=== PATIENT | female | born 1970 | race Two or more races ===

== ENCOUNTER 2018-10-06 17:19 | Emergency (ER) | payer SELFPAY ==
[2018-10-06 17:34] VITALS: BP 166/88; PULSE 101; TEMP 99.5; BMI 30.2
[2018-10-06] MEDS ORDERED: METOCLOPRAMIDE HCL INJECTION 10 MG/2 ML VIAL IM ONE (18:57)
[2018-10-06] MEDS ORDERED: METOCLOPRAMIDE HCL INJECTION 10 MG/2 ML VIAL ONE (19:01)
[2018-10-06] MEDS ORDERED: KETOROLAC TROMETHAMINE 30 MG/1 ML VIAL IM ONE (19:34)
[2018-10-06] MEDS ORDERED: KETOROLAC TROMETHAMINE 30 MG/1 ML VIAL ONE (19:39)
--- NOTE | 2018-10-06 19:59 | PDOC ---
History of Present Illness - General Chief Complaint: Headache Stated Complaint: HEAD/NECK PROBLEM Time Seen by Provider: 10/06/18 18:42 History Source: Patient Exam Limitations: No Limitations Past History - Past Medical History Allergies/Adverse Reactions: Allergies Allergy/AdvReac Type Severity Reaction Status Date / Time Penicillins Allergy Mild Difficulty Verified 10/06/18 17:31 Breathing Home Medications: Ambulatory Orders Butalb/Acetaminophen/Caffeine [[id number] [id number]] 1 each PO ASDIR 10/06/18 Gabapentin 100 mg PO ASDIR 10/06/18 Hydrochlorothiazide [Hctz -] 12.5 mg PO DAILY 10/06/18 Anemia: No Asthma: Yes Cancer: No Cardiac Disorders: No CVA: No COPD: No CHF: No Dementia: No Diabetes: No GI Disorders: No Disorders: Yes (BLOOD IN URINE;"KIDNEY PAIN") HTN: Yes (migraines) Hypercholesterolemia: No Liver Disease: No Seizures: No Thyroid Disease: No - Surgical History Abdominal Surgery: No Appendectomy: No Cardiac Surgery: No Cholecystectomy: No Lung Surgery: No Neurologic Surgery: No Orthopedic Surgery: No - Immunization History Immunization Up to Date: Yes - Suicide/Smoking/Psychosocial Hx Smoking History: Never smoked Have you smoked in the past 12 months: No Number of Cigarettes Smoked Daily: 0 Cigars Per Day: 0 Information on smoking cessation initiated: No Hx Alcohol Use: No Drug/Substance Use Hx: No Substance Use Type: Alcohol Hx Substance Use Treatment: No *Physical Exam - Vital Signs Last Vital Signs Temp Pulse Resp BP Pulse Ox 99.5 F 101 H 16 166/88 100 10/06/18 17:31 10/06/18 17:31 10/06/18 17:31 10/06/18 17:31 10/06/18 17:31 - Physical Exam General Appearance: No: Apparent Distress HEENT: positive: TC Neck: positive: Supple Respiratory/Chest: positive: Lungs Clear, Normal Breath Sounds. negative: Respiratory Distress Cardiovascular: positive: Regular Rhythm, Regular Rate, S1, S2. negative: Murmur Gastrointestinal/Abdominal: positive: Normal Bowel Sounds, Soft. negative: Tender, Distended, Guarding, Rebound Neurologic: positive: applications support analyst II-XII NML intact, Fully Oriented, Alert, Normal Mood/ Affect, Normal Response, Motor Strength 5/5. negative: Facial Droop, Numbness, Sensory Deficit, Confused, Disoriented Moderate Sedation - Procedure Monitoring Vital Signs: Procedure Monitoring Vital Signs Temperature 99.5 F 10/06/18 17:31 Pulse Rate 101 H 10/06/18 17:31 Respiratory Rate 16 10/06/18 17:31 Blood Pressure 166/88 10/06/18 17:31 O2 Sat by Pulse Oximetry (%) 100 10/06/18 17:31 ED Treatment Course - Medications Given in the ED: ED Medications Discontinued Medications Generic Name Dose Route Start Last Admin Trade Name Claudine PRN Reason Stop Dose Admin Ketorolac Tromethamine 30 mg 10/06/18 19:34 10/06/18 19:43 Toradol Injection - IM 10/06/18 19:35 30 mg ONCE ONE Administration Metoclopramide HCl 10 mg 10/06/18 18:57 10/06/18 19:04 Reglan Injection - IM 10/06/18 18:58 10 mg ONCE ONE Administration Medical Decision Making - Medical Decision Making 48 y/o F hx of migraines, HTN, pre-DM, chronic back pain presents with posterior PERRIN radiating along R side along with neck pain x 2 weeks, which is intermittent in nature. Has been taking Tylenol, Motrin and Fioricet without relief of her headache. States PERRIN does not feel like her usual migraines but it is not worst PERRIN of her life; has had worse HAs in the past. States light may may PERRIN worse. Denies fever, new numbness/tingling of extremities, visual/gait/ speech changes, n/v. PE unremarkable with no focal deficits Patient appears well; less suspicious for head bleed Plan: Toradol, Reglan, reassess 10/06/18 19:55 Patient felt much better after Toradol, Reglan and IVF Advised f/u with PCP for further care Stable for d/c 10/06/18 20:55 *DC/Admit/Observation/Transfer Diagnosis at time of Disposition: Headache Qualifiers: Headache type: unspecified Headache chronicity pattern: acute headache Intractability: not intractable Qualified Code(s): R51 - Headache - Discharge Dispostion Disposition: HOME Condition at time of disposition: Improved Decision to Admit order: No - Referrals - Patient Instructions Printed Discharge Instructions: DI for Migraine, DI for Headache Additional Instructions: Thank you for choosing [facility]. It was a pleasure taking care of you. You may take Tylenol 650 mg or Motrin 600 mg every 4 hours by mouth as needed for mild to moderate pain. Take Motrin with food. Do not take more than 4000 mg of Tylenol in 1 day. Follow-up with your primary care doctor in 2-3 days. Return to the Emergency Department if your symptoms worsen or persist, you have fever, vomiting, dizziness, weakness of extremities (arms and/or legs), changes in vision or walking or other concerning symptoms. - Post Discharge Activity
[2018-10-06] MEDS ORDERED: SODIUM CHLORIDE 1,000 ML IV STA (20:14)
== END 2018-10-06 21:18 | disposition home or self-care (01) ==
LOC: JERFT 17:19
CPT/HCPCS: 99281-25; J7030

== ENCOUNTER 2019-01-04 18:21 | Emergency (ER) | payer OTHER ==
--- NOTE | 2019-01-04 18:31 | PDOC ---
Rapid Medical Evaluation Time Seen by Provider: 01/04/19 18:28 Medical Evaluation: Allergies Allergy/AdvReac Type Severity Reaction Status Date / Time Penicillins Allergy Mild Difficulty Verified 10/06/18 17:31 Breathing 01/04/19 18:29 Pt c/o: headache and neck pain, in process of neuro f/u and MRI ( 01/30) , requesting medication, no photosensitivity Pt on brief exam: vss, perrl Pt ordered for: none Pt to proceed to the ED Discharge Disposition - Diagnosis Headache - Referrals - Patient Instructions - Post Discharge Activity
[2019-01-04 18:35] VITALS: BP 160/89; PULSE 90; TEMP 98.3; BMI 30.2
[2019-01-04] MEDS ORDERED: ACETAMINOPHEN 1000 MG/100 ML VIAL (NON FORMULARY) IVPB ONE (19:07)
[2019-01-04] MEDS ORDERED: METOCLOPRAMIDE HCL INJECTION 10 MG/2 ML VIAL IVPB ONE (19:07)
[2019-01-04] MEDS ORDERED: SODIUM CHLORIDE 1,000 ML IV STA (19:07)
--- NOTE | 2019-01-04 19:08 | PDOC ---
History of Present Illness - General Chief Complaint: Headache Stated Complaint: HEADACHE Time Seen by Provider: 01/04/19 18:28 History Source: Patient Exam Limitations: No Limitations - History of Present Illness Initial Comments: 01/04/19 22:54 The patient is a 48-year-old female past medical history of headaches, who presents to the ER today for worsening headache over the past 5 days. Patient states she has tried taking medication at home that was prescribed to her by her neurologist with little relief of symptoms. Patient states that she is due to for an MRI on January 31. She states that the headache wraps around her head. She is requesting Toradol for pain. Denies fevers, chills, lightheadedness, dizziness, nausea, vomiting, diarrhea. Past History - Travel Traveled outside of the country in the last 30 days: No Close contact w/someone who was outside of country & ill: No - Past Medical History Allergies/Adverse Reactions: Allergies Allergy/AdvReac Type Severity Reaction Status Date / Time Penicillins Allergy Mild Difficulty Verified 01/04/19 18:32 Breathing Home Medications: Ambulatory Orders NK [No Known Home Medication] 01/04/19 Anemia: No Asthma: Yes Cancer: No Cardiac Disorders: No CVA: No COPD: No CHF: No Dementia: No Diabetes: No GI Disorders: No Disorders: Yes (BLOOD IN URINE;"KIDNEY PAIN") HTN: Yes (migraines) Hypercholesterolemia: No Liver Disease: No Seizures: No Thyroid Disease: No - Surgical History Abdominal Surgery: No Appendectomy: No Cardiac Surgery: No Cholecystectomy: No Lung Surgery: No Neurologic Surgery: No Orthopedic Surgery: No - Immunization History Immunization Up to Date: Yes - Suicide/Smoking/Psychosocial Hx Smoking History: Never smoked Have you smoked in the past 12 months: No Number of Cigarettes Smoked Daily: 0 Cigars Per Day: 0 Information on smoking cessation initiated: No Hx Alcohol Use: No Drug/Substance Use Hx: No Substance Use Type: Alcohol Hx Substance Use Treatment: No Review of Systems - Review of Systems Able to Perform ROS?: Yes Comments:: 01/04/19 22:54 CONSTITUTIONAL: Absent: fever, chills, diaphoresis, generalized weakness, malaise, loss of appetite HEENT: Absent: rhinorrhea, nasal congestion, throat pain, throat swelling, difficulty swallowing, mouth swelling, ear pain, eye pain, visual Changes CARDIOVASCULAR: Absent: chest pain, loss of consciousness, palpitations, irregular heart rate, peripheral edema RESPIRATORY: Absent: cough, shortness of breath, dyspnea with exertion, orthopnea, wheezing, stridor, hemoptysis GASTROINTESTINAL: Absent: abdominal pain, abdominal distension, nausea, vomiting, diarrhea, constipation, melena, hematochezia GENITOURINARY: Absent: dysuria, frequency, urgency, hesitancy, hematuria, flank pain, genital pain MUSCULOSKELETAL: Absent: myalgia, arthralgia, joint swelling SKIN: Absent: rash, itching, pallor HEMATOLOGIC/IMMUNOLOGIC: Absent: easy bleeding, easy bruising, lymphadenopathy, frequent infections ENDOCRINE: Absent: unexplained weight gain, unexplained weight loss, heat intolerance, cold intolerance NEUROLOGIC: Present: headache Absent: focal weakness or paresthesias, dizziness, unsteady gait, seizure, mental status changes, bladder or bowel incontinence PSYCHIATRIC: Absent: anxiety, depression, suicidal or homicidal ideation, hallucinations. Is the patient limited Filipino proficient: No *Physical Exam - Vital Signs Last Vital Signs Temp Pulse Resp BP Pulse Ox 98.3 F 90 19 160/89 100 01/04/19 18:30 01/04/19 18:30 01/04/19 18:30 01/04/19 18:30 01/04/19 18:30 - Physical Exam Comments: 01/04/19 22:55 GENERAL: Well developed, well nourished. Awake and alert. No acute distress. HEENT: Normocephalic, atraumatic. PERRLA, EOMI. No conjunctival pallor. Sclera are non- icteric. Moist mucous membranes. Oropharynx is clear. NECK: Supple. Full ROM. No JVD. Carotid pulses 2+ and symmetric, without bruits. No thyromegaly. No lymphadenopathy. CARDIOVASCULAR: Regular rate and rhythm. No murmurs, rubs, or gallops. Distal pulses are 2+ and symmetric. PULMONARY: No evidence of respiratory distress. Lungs clear to auscultation bilaterally. No wheezing, rales or rhonchi. ABDOMINAL: Soft. Non-tender. Non-distended. No rebound or guarding. No organomegaly. Normoactive bowel sounds. MUSCULOSKELETAL Normal range of motion at all joints. No bony deformities or tenderness. No CVA tenderness. EXTREMITIES: No cyanosis. No clubbing. No edema. No calf tenderness. SKIN: Warm and dry. Normal capillary refill. No rashes. No jaundice. NEUROLOGICAL: Alert, awake, appropriate. Cranial nerves 2-12 intact. No deficits to light touch and temperature in face, upper extremities and lower extremities. No motor deficits in the in face, upper extremities and lower extremities. Normoreflexic in the upper and lower extremities. Normal speech. Toes are down- going bilaterally. Gait is normal without ataxia. PSYCHIATRIC: Cooperative. Good eye contact. Appropriate mood and affect. Moderate Sedation - Procedure Monitoring Vital Signs: Procedure Monitoring Vital Signs Temperature 98.3 F 01/04/19 18:30 Pulse Rate 90 01/04/19 18:30 Respiratory Rate 19 01/04/19 18:30 Blood Pressure 160/89 01/04/19 18:30 O2 Sat by Pulse Oximetry (%) 100 01/04/19 18:30 Medical Decision Making - Medical Decision Making 01/04/19 22:55 The patient is a 48-year-old female past medical history of headaches, who presents to the ER for worsening headache over the past 5 days. Patient states this feels like her usual headaches. She states she has had Toradol the past with relief of symptoms. Patient is neurologically intact with no focal findings. Reglan, Benadryl, IV Tylenol and Toradol given with some relief of symptoms. Dexamethasone also given for pain. Reevaluation, patient now rates the pain is about half of what she came in with. Requesting discharge. Asked patient to call neurologist tomorrow to possibly pushup MRI. I discussed the physical exam findings, ancillary test results and final diagnoses with the patient. I answered all of the patient's questions. The patient was satisfied with the care received and felt comfortable with the discharge plan and treatment plan. The Patient agrees to follow up with the primary care physician/specialist within 24-72 hours. Return precautions were given. *DC/Admit/Observation/Transfer Diagnosis at time of Disposition: Headache Qualifiers: Headache type: unspecified Headache chronicity pattern: unspecified pattern Intractability: not intractable Qualified Code(s): R51 - Headache - Discharge Dispostion Disposition: HOME Condition at time of disposition: Stable Decision to Admit order: No - Referrals Referrals: Frank Carrera MD [Primary Care Provider] - - Patient Instructions Printed Discharge Instructions: DI for Headache Additional Instructions: You were evaluated for your headache Please call your neurologist tomorrow Take all your medications as prescribed Take Motrin 800mg every 8 hours, not to exceed 3,000mg a day. Take with food. Return to the ED for worsening headache, gait changes, lightheadedness, loss of consciousness or if you have any changes in your symptoms. - Post Discharge Activity Forms/Work/School Notes: Back to Work
[2019-01-04] MEDS ORDERED: METOCLOPRAMIDE HCL INJECTION 10 MG/2 ML VIAL ONE (19:29)
[2019-01-04] MEDS ORDERED: ACETAMINOPHEN INJECTION 100 ML IVPB ONE (19:44)
[2019-01-04] MEDS ORDERED: KETOROLAC TROMETHAMINE 30 MG/1 ML VIAL IVPUSH ONE (20:23)
[2019-01-04] MEDS ORDERED: KETOROLAC TROMETHAMINE 30 MG/1 ML VIAL ONE (20:36)
[2019-01-04] MEDS ORDERED: DEXAMETHASONE LIQUID 0.5 MG/5 ML 240 ML BULK BOTTLE PO ONE (21:13)
[2019-01-04] MEDS ORDERED: DEXAMETHASONE SOD PHOSPHATE 10 MG/1 ML VIAL ONE (21:15)
[2019-01-04] MEDS ORDERED: IBUPROFEN 600 MG TABLET (FP) PO ONE (21:37)
== END 2019-01-04 21:42 | disposition home or self-care (01) ==
LOC: JER 18:21
PROC: 3E033GC Introduction of Other Therapeutic Substance into Peripheral Vein, Percutaneous Approach (ICD-10-PCS; principal; 2019-01-04)
PROC: 3E033GC Introduction of Other Therapeutic Substance into Peripheral Vein, Percutaneous Approach (ICD-10-PCS; 2019-01-04)
PROC: 3E033NZ Introduction of Analgesics, Hypnotics, Sedatives into Peripheral Vein, Percutaneous Approach (ICD-10-PCS; 2019-01-04)
PROC: 3E0333Z Introduction of Anti-inflammatory into Peripheral Vein, Percutaneous Approach (ICD-10-PCS; 2019-01-04)
DX: R51 Headache (principal)
CPT/HCPCS: 99281-25; J0131; J7030

== ENCOUNTER 2019-01-05 04:07 | Emergency (ER) | payer OTHER ==
[2019-01-05 04:51] VITALS: TEMP 97.9; BMI 31.3
[2019-01-05] MEDS ORDERED: SODIUM CHLORIDE 0.9% 500 ML INFUS.BAG IV ONE (05:04)
--- NOTE | 2019-01-05 05:05 | PDOC ---
History of Present Illness - General Chief Complaint: Headache Stated Complaint: CHEST PAIN,HEADACHE NECK PAIN - History of Present Illness Initial Comments: The pt is a 48F w/ a history of asthma, vertigo, and migraines who presents for evaluation of persistent PERRIN and chest tightness w/ inhalation. The pt reports being evaluated last night w/ some symptomatic relief s/p treatment here. She was feeling okay until approximately 1hr VISUAL COORDINATOR when she noted return of her PERRIN, described as b/l pressure/throbbing with radiation to the neck and intermittent dizziness that is similar to her usual headaches. She also reports chest tightness w/ inspiration that started at rest. States that the sensation is intermittent, non-exertional, not currently present, sometimes will feel like pressure, denies radiation, and states that it does not feel like the same tightness as her asthma. Denies fevers, abdominal pain, N/V/C/D, dysuria, hematuria, or changes in strength/sensation 01/05/19 05:11 Past History - Past Medical History Allergies/Adverse Reactions: Allergies Allergy/AdvReac Type Severity Reaction Status Date / Time Penicillins Allergy Mild Difficulty Verified 01/05/19 04:49 Breathing Home Medications: Ambulatory Orders NK [No Known Home Medication] 01/04/19 Anemia: No Asthma: Yes Cancer: No Cardiac Disorders: No CVA: No COPD: No CHF: No Dementia: No Diabetes: No GI Disorders: No Disorders: Yes (BLOOD IN URINE;"KIDNEY PAIN") HTN: Yes (migraines) Hypercholesterolemia: No Liver Disease: No Seizures: No Thyroid Disease: No - Surgical History Abdominal Surgery: No Appendectomy: No Cardiac Surgery: No Cholecystectomy: No Lung Surgery: No Neurologic Surgery: No Orthopedic Surgery: No - Immunization History Immunization Up to Date: Yes - Suicide/Smoking/Psychosocial Hx Smoking History: Never smoked Have you smoked in the past 12 months: No Number of Cigarettes Smoked Daily: 0 Cigars Per Day: 0 Information on smoking cessation initiated: No Hx Alcohol Use: No Drug/Substance Use Hx: No Substance Use Type: Alcohol Hx Substance Use Treatment: No Review of Systems - Review of Systems Able to Perform ROS?: Yes Comments:: GENERAL/CONSTITUTIONAL: No fever. No weakness HEAD, EYES, EARS, NOSE AND THROAT: No change in vision or hearing. No sore throat CARDIOVASCULAR: Denies current chest pain or SOB RESPIRATORY: Denies hemoptysis GASTROINTESTINAL: No nausea, vomiting, diarrhea or constipation GENITOURINARY: No dysuria, frequency, or change in urination MUSCULOSKELETAL: No joint or muscle swelling or pain. No neck or back pain SKIN: No rash NEUROLOGIC: No loss of consciousness, or change in strength/sensation ENDOCRINE: No increased thirst. No abnormal weight change HEMATOLOGIC/LYMPHATIC: No history of blood clots ALLERGIC/IMMUNOLOGIC: No hives or skin allergy 01/05/19 05:20 Is the patient limited Sami proficient: No *Physical Exam - Vital Signs Last Vital Signs Temp Pulse Resp BP Pulse Ox 97.9 F 122 H 20 160/86 98 01/05/19 04:10 01/05/19 04:10 01/05/19 04:10 01/05/19 04:10 01/05/19 04:10 - Physical Exam Comments: GENERAL: Awake, alert, and oriented to person/place/time HEAD: No signs of trauma, normocephalic, atraumatic EYES: PERRLA, EOMI, sclera anicteric, conjunctiva clear ENT: Hearing grossly normal, nares patent, oropharynx clear without exudates. Moist mucosa LUNGS: No distress, speaks full sentences, clear to auscultation bilaterally HEART: Tachycardic w/ regular rhythm, normal S1 and S2, no murmurs appreciated, peripheral pulses normal and equal bilaterally ABDOMEN: Soft, nontender, normoactive bowel sounds. No guarding, no rebound EXTREMITIES: Normal inspection, Normal range of motion, no edema. No clubbing or cyanosis NEUROLOGICAL: Cranial nerves II through XII grossly intact. Normal speech, no focal sensorimotor deficits SKIN: Warm, Dry 01/05/19 05:21 Moderate Sedation - Procedure Monitoring Vital Signs: Procedure Monitoring Vital Signs Temperature 97.9 F 01/05/19 04:10 Pulse Rate 122 H 01/05/19 04:10 Respiratory Rate 20 01/05/19 04:10 Blood Pressure 160/86 01/05/19 04:10 O2 Sat by Pulse Oximetry (%) 98 01/05/19 04:10 ED Treatment Course - LABORATORY CBC & Chemistry Diagram: 01/05/19 05:24 01/05/19 05:24 - RADIOLOGY Radiology Studies Ordered: Category Date Time Status CHEST X-RAY PORTABLE* [RAD] Stat Radiology 01/05/19 05:03 Ordered Medical Decision Making - Medical Decision Making The pt is a 48F w/ a history of migraines, asthma, and vertigo who presents for evaluation of persistent b/l PERRIN and chest tightness CMP to evaluate to evaluate for renal function/lytes CBC to r/o anemia and leukocytosis Trop I to evaluate for ACS Will obtain CXR D-dimer to r/o PE ECG w/ sinus tachycardia; HR 124; QTc 468 Will give Tylenol, Reglan, Benadryl, and IVF for symptomatic relief 01/05/19 05:22 Pt HEART score 2 Initial Trop I neg D-dimer negative No leukocytosis No anemia 01/05/19 06:37 Mild transaminitis, pt w/o abdominal pain. Findings discussed w/ patient as well as need to f/u w/ PCP and GI for further evaluation. CXR w/o acute pathology 01/05/19 06:42 Pt signed out to day team 01/07/19 10:33 *DC/Admit/Observation/Transfer Diagnosis at time of Disposition: Headache Qualifiers: Headache type: unspecified Headache chronicity pattern: episodic headache Intractability: not intractable Qualified Code(s): R51 - Headache - Discharge Dispostion Disposition: HOME Condition at time of disposition: Improved - Referrals Referrals: Hilario Foley MD [Primary Care Provider] - Ander Murrieta MD [Staff Physician] - Dionisio Ledesma MD [Staff Physician] - - Patient Instructions Printed Discharge Instructions: DI for Migraine, DI for Chest Pain Additional Instructions: You were seen in the Emergency Department for evaluation of headache and chest tightness. Your labs were significant for elevation in your liver enzymes. You should follow up with your primary care provider and gasteroenterology concerning these findings. Review the handouts provided at discharge. Follow up with your primary care provider and gasteroenterology. Return to the Emergency Department if you develop fevers, chest pain, trouble breathing, vomiting, changes in sensation/strength, worsening symptoms, or any new/concerning symptoms. Please also call your neurologist concerning your MRI scheduling today. Please follow up with your primary care physician and your appointment with your neurologist. Usted fue atendido en el Departamento de Emergencias para evaluar el dolor de carlita y la opresin en el pecho. Diane laboratorios fueron significativos para la elevacin de diaen enzimas hepticas. Debe hacer un seguimiento con mak proveedor de atencin primaria y gasteroenterologa con respecto a estos hallazgos. Revise los folletos proporcionados al momento del tate. Man un seguimiento con mak proveedor de atencin primaria y gasteroenterologa. Regrese al Departamento de Emergencias si presenta fiebre, dolor en el pecho, dificultad para respirar, vmitos, cambios en la sensacin / fuerza, empeoramiento de los sntomas o cualquier sntoma nuevo o relacionado. Por favor, llame a mak neurlogo acerca de mak programacin de MRI hoy. Print Language: INDONESIAN - Post Discharge Activity
[2019-01-05] MEDS ORDERED: METOCLOPRAMIDE HCL INJECTION 10 MG/2 ML VIAL IVPB ONE (05:06)
[2019-01-05] MEDS ORDERED: ACETAMINOPHEN 325 MG TABLET (FP) PO ONE (05:06)
[2019-01-05] MEDS ORDERED: METOCLOPRAMIDE HCL INJECTION 10 MG/2 ML VIAL ONE (05:12)
[2019-01-05] MEDS ORDERED: ACETAMINOPHEN 325 MG TABLET (FP) ONE (05:12)
--- NOTE | 2019-01-05 05:36 | PDOC ---
Attending Attestation - Resident Resident Name: Ashu Almanzar - ED Attending Attestation I have performed the following: I have examined & evaluated the patient, The case was reviewed & discussed with the resident, I agree w/resident's findings & plan, Exceptions are as noted - HPI HPI: 01/05/19 06:49 48F pmh asthma, vertigo, migranous headaches here with recurrent headaches. Was seen yesterday for same symptoms. Headache is typical distribution, slow onset, not exertional in onset. A/w chest tightness with deep breaths. - Physicial Exam PE: 01/05/19 06:50 Agree with exam as documented by resident - Medical Decision Making 01/05/19 06:50 Typical PERRIN w/o red flags, pt being followed by neurology has f/u and op mri scheduled Tachy with sob? cp? consider PE but low risk will get d-dimer, f/u trop if neg HEART score 2 ekg sinus tachy f/u cxr HR still >100 when pain free, f/u tsh
[2019-01-05 05:59] LABS: HEMATOCRIT 43.4 % (32.4-45.2); HEMOGLOBIN 14.9 GM/dL (10.7-15.3); MCH 30.2 pg (25.7-33.7); MCHC 34.3 g/dl (32.0-36.0); MEAN CELL VOLUME 87.9 fl (80-96); MEAN PLT VOLUME 9.9 fl (7.5-11.1); PLATELET COUNT 210 K/MM3 (134-434); RBC 4.93 M/mm3 (3.60-5.2); RDW 13.9 % (11.6-15.6)
[2019-01-05 06:28] LABS: ALBUMIN 3.8 g/dl (3.4-5.0); ALK PHOS 130 U/L (45-117); ANION GAP 8 MMOL/L (8-16); BILIRUBIN,TOTAL 0.2 mg/dL (0.2-1); BLOOD UREA NITROGEN 16 mg/dL (7-18); CALCIUM 8.7 mg/dL (8.5-10.1); CHLORIDE 108 mmol/L (98-107); CO2 22 mmol/L (21-32); CREATININE 0.7 mg/dL (0.55-1.3); GLUCOSE,RANDOM 205 mg/dL (74-106); POTASSIUM 3.9 mmol/L (3.5-5.1); SGOT/AST 54 U/L (15-37); SGPT/ALT 89 U/L (13-61); SODIUM 138 mmol/L (136-145); TOT PROT 8.1 g/dl (6.4-8.2)
[2019-01-05 06:34] VITALS: PULSE 98
[2019-01-05 06:44] VITALS: BP 134/77
[2019-01-05] MEDS ORDERED: KETOROLAC TROMETHAMINE 15 MG/ML VIAL IVPUSH ONE (07:02)
[2019-01-05] MEDS ORDERED: DEXAMETHASONE SOD PHOSPHATE 20 MG/5 ML VIAL IVPB ONE (07:48)
--- NOTE | 2019-01-05 08:19 | PDOC ---
*Physical Exam - Vital Signs Last Vital Signs Temp Pulse Resp BP Pulse Ox 97.9 F 98 H 20 134/77 99 01/05/19 04:10 01/05/19 06:33 01/05/19 06:33 01/05/19 06:44 01/05/19 06:33 - Physical Exam Comments: 01/05/19 08:16 Sign out received from Dr. Baez. Patient noted for improving headache and states the pain medication helped. States her chest pain is improving. Labs WNL, TSH WNL 10 mg IV push Decadron for continued headache improvement. Discussed follow up with neurology for continued management ED Treatment Course - LABORATORY CBC & Chemistry Diagram: 01/05/19 05:24 01/05/19 05:24 - ADDITIONAL ORDERS Additional order review: Laboratory Results 01/05/19 01/05/19 01/05/19 05:24 05:24 05:24 D-Dimer < 215 Sodium 138 Potassium 3.9 Chloride 108 H Carbon Dioxide 22 Anion Gap 8 BUN 16 Creatinine 0.7 Creat Clearance w eGFR 88.94 Random Glucose 205 H Calcium 8.7 Total Bilirubin 0.2 AST 54 H ALT 89 H Alkaline Phosphatase 130 H Troponin I 0.02 Total Protein 8.1 Albumin 3.8 TSH 1.67 Urine HCG, Qual Negative 01/05/19 05:24 RBC 4.93 MCV 87.9 MCHC 34.3 RDW 13.9 MPV 9.9 - Medications Given in the ED: ED Medications Discontinued Medications Generic Name Dose Route Start Last Admin Trade Name Ermiasq PRN Reason Stop Dose Admin Acetaminophen 975 mg 01/05/19 05:06 01/05/19 05:17 Tylenol - PO 01/05/19 05:07 975 mg ONCE ONE Administration Diphenhydramine HCl 12.5 mg 01/05/19 05:06 01/05/19 05:17 Benadryl Injection - IVPUSH 01/05/19 05:07 12.5 mg ONCE ONE Administration Ketorolac Tromethamine 15 mg 01/05/19 07:02 01/05/19 07:19 Toradol Injection - IVPUSH 01/05/19 07:03 15 mg ONCE ONE Administration Metoclopramide HCl 10 mg 01/05/19 05:06 01/05/19 05:17 Reglan Injection - IVPB 01/05/19 05:07 10 mg ONCE ONE Administration Sodium Chloride 1,000 ml 01/05/19 05:04 01/05/19 05:10 Normal Saline - IV 01/05/19 05:05 1,000 ml ONCE ONE Administration Medical Decision Making - Medical Decision Making 01/05/19 09:00 Patient with a hx of migraines. Toradol and Decradon relieved symptoms. Will follow up with Neurologist as an outpatient, will follow up with a MRI *DC/Admit/Observation/Transfer Diagnosis at time of Disposition: Headache Qualifiers: Headache type: unspecified Headache chronicity pattern: episodic headache Intractability: not intractable Qualified Code(s): R51 - Headache - Discharge Dispostion Condition at time of disposition: Improved - Referrals Referrals: Hilario Foley MD [Primary Care Provider] - Dionisio Ledesma MD [Staff Physician] - Ander Murrieta MD [Staff Physician] - - Patient Instructions Printed Discharge Instructions: DI for Migraine, DI for Chest Pain Additional Instructions: You were seen in the Emergency Department for evaluation of headache and chest tightness. Your labs were significant for elevation in your liver enzymes. You should follow up with your primary care provider and gasteroenterology concerning these findings. Review the handouts provided at discharge. Follow up with your primary care provider and gasteroenterology. Return to the Emergency Department if you develop fevers, chest pain, trouble breathing, vomiting, changes in sensation/strength, worsening symptoms, or any new/concerning symptoms. Please also call your neurologist concerning your MRI scheduling today. Please follow up with your primary care physician and your appointment with your neurologist. Usted fue atendido en el Departamento de Emergencias para evaluar el dolor de carlita y la opresin en el pecho. Diane laboratorios fueron significativos para la elevacin de diane enzimas hepticas. Debe hacer un seguimiento con mak proveedor de atencin primaria y gasteroenterologa con respecto a estos hallazgos. Revise los folletos proporcionados al momento del tate. Man un seguimiento con mak proveedor de atencin primaria y gasteroenterologa. Regrese al Departamento de Emergencias si presenta fiebre, dolor en el pecho, dificultad para respirar, vmitos, cambios en la sensacin / fuerza, empeoramiento de los sntomas o cualquier sntoma nuevo o relacionado. Por favor, llame a mak neurlogo acerca de mak programacin de MRI hoy. Print Language: ALBANIAN - Post Discharge Activity
[2019-01-05] MEDS ORDERED: DEXAMETHASONE SOD PHOSPHATE 10 MG/1 ML VIAL ONE (08:35)
--- NOTE | 2019-01-05 10:58 | EKG ---
Test Reason : Blood Pressure : / mmHG Vent. Rate : 124 BPM Atrial Rate : 124 BPM P-R Int : 144 ms QRS Dur : 076 ms QT Int : 326 ms P-R-T Axes : 065 056 049 degrees QTc Int : 468 ms SINUS TACHYCARDIA NO PREVIOUS ECGS AVAILABLE Confirmed by JAQUELIN SYLVESTER MD ([id number]) on 01/05/2019 10:57:59 AM Referred By: Confirmed By:JAQUELIN SYLVESTER MD
== END 2019-01-05 09:14 | disposition home or self-care (01) ==
LOC: JER 04:07
DX: R51 Headache (principal); I10 Essential (primary) hypertension
CPT/HCPCS: 36415; 71045-TC-FY; 80053; 84443; 84484; 84703; 85027; 85379; 93005; 93010; 99285-25

== ENCOUNTER 2019-08-10 06:53 | Day surgery (SDC) | payer OTHER ==
[2019-08-09 10:41] VITALS: BMI 30.9
[2019-08-10] MEDS ORDERED: BUPIVACAINE HCL/PF 0.5% (5 MG/ML) 30 ML VIAL IJ ONE ×2 (07:38→08:36)
[2019-08-10] MEDS ORDERED: LIDOCAINE HCL/PF 2% SDV 5ML VIAL ONE (08:03)
[2019-08-10] MEDS ORDERED: ROCURONIUM BROMIDE 50 MG/5 ML SYRINGE ONE (08:03)
[2019-08-10] MEDS ORDERED: PROPOFOL 20 ML ONE ×2 (08:03→08:10)
[2019-08-10] MEDS ORDERED: MIDAZOLAM HCL 2 MG/2 ML SINGLE DOSE VIAL ONE (08:03)
--- NOTE | 2019-08-10 08:21 | HP ---
Admitting History and Physical - Admission Chief Complaint: RUQ pain History of Present Illness: 49 y.o. female with chronic RUQ pain with findings of hepatomegaly and acalculous cholecystitis on imaging studies History Source: Patient Limitations to Obtaining History: No Limitations - Past Medical History ...LMP: 06/19/16 ...LMP Comment: irregular ...: No - Smoking History Smoking history: Never smoked Have you smoked in the past 12 months: No Aproximately how many cigarettes per day: 0 - Alcohol/Substance Use Hx Alcohol Use: Yes (socially) Home Medications - Allergies Allergies/Adverse Reactions: Allergies Allergy/AdvReac Type Severity Reaction Status Date / Time Penicillins Allergy Mild Difficulty Verified 08/10/19 07:36 Breathing - Home Medications Home Medications: Ambulatory Orders Dexlansoprazole [Dexilant] 40 mg PO DAILY 08/09/19 Review of Systems - Review of Systems Eyes: reports: No Symptoms HENT: reports: No Symptoms Neck: reports: No Symptoms Cardiovascular: reports: No Symptoms Respiratory: reports: No Symptoms Gastrointestinal: reports: Abdominal Pain (RUQ) Genitourinary: reports: No Symptoms Musculoskeletal: reports: No Symptoms Neurological: reports: No Symptoms Physical Examination Vital Signs: Vital Signs Temperature 98.8 F 08/10/19 07:28 Pulse Rate 92 H 08/10/19 07:28 Respiratory Rate 18 08/10/19 07:28 Blood Pressure 143/91 08/10/19 07:28 O2 Sat by Pulse Oximetry (%) 100 08/10/19 07:30 Constitutional: Yes: Well Nourished Eyes: Yes: Conjunctiva Clear HENT: Yes: Normocephalic Neck: Yes: Supple Cardiovascular: Yes: Regular Rate and Rhythm Respiratory: Yes: CTA Bilaterally Gastrointestinal: Yes: Normal Bowel Sounds, Soft, Abdomen, Obese, Tenderness ( mild at RUQ) Renal/: Yes: WNL Extremities: Yes: WNL Neurological: Yes: WNL Imaging - Results Ultrasound: Report Reviewed, Image Reviewed MRI: Report Reviewed, Image Reviewed Other: Report Reviewed, Image Reviewed (HIDA with EF) Problem List - Problems (1) Acalculous cholecystitis Assessment/Plan: laparoscopic cholecystectomy and liver biopsy Code(s): K81.9 - CHOLECYSTITIS, UNSPECIFIED
[2019-08-10] MEDS ORDERED: ceFAZolin SODIUM 1 GM VIAL ONE (08:22)
[2019-08-10] MEDS ORDERED: ceFAZolin SODIUM 1 GM VIAL IVPB ONE (08:26)
[2019-08-10] MEDS ORDERED: DEXAMETHASONE SOD PHOSPHATE 4 MG/1 ML VIAL ONE (08:53)
[2019-08-10] MEDS ORDERED: GLYCOPYRROLATE 0.2 MG/1 ML VIAL ONE (08:53)
[2019-08-10] MEDS ORDERED: NEOSTIGMINE METHYLSULFATE 0.5 MG/ML - 10 ML MDV ONE (08:53)
[2019-08-10] MEDS ORDERED: KETOROLAC TROMETHAMINE 30 MG/1 ML VIAL ONE ×2 (09:14→09:37)
[2019-08-10] MEDS ORDERED: ONDANSETRON 4 MG/2 ML VIAL IVPUSH PRN (09:52)
--- NOTE | 2019-08-10 10:10 | OP ---
Operative Note - Note: Operative Date: 08/10/19 Pre-Operative Diagnosis: Chronic cholecystitis Operation: Laparscopic cholecystectomy, liver biopsy Findings: as dictated Post-Operative Diagnosis: Same as Pre-op Surgeon: Twan Rivas Anesthesiology Tech: Annemarie Bhardwaj Anesthesiologist/TRAVEL COTA: Katlyn Blandon Anesthesia: General, Local (10cc .25% Marcaine) Specimens Removed: Gallbladder, liver biopsy Estimated Blood Loss (mls): 15 (ml) Fluid Volume Replaced (mls): 500 (ml LR) Operative Report Dictated: Yes
--- NOTE | 2019-08-10 10:12 | OP ---
Operative Note - Note: Operative Date: 08/10/19 Pre-Operative Diagnosis: chronic acalculous cholecystitis and fatty liver Operation: laparoscopic cholecystectomy and liver biopsy Findings: hepatomegaly, distended floppy GB with omental adhesions Post-Operative Diagnosis: Same as Pre-op Surgeon: Twan Rivas Shoe Cementer: Annemarie Bhardwaj Anesthesia: General Specimens Removed: gallbaldder and liver tissue Estimated Blood Loss (mls): 15 Operative Report Dictated: Yes
--- NOTE | 2019-08-10 10:12 | SURG ---
Surgery Precipitator Supervisor Note Precipitator Supervisor: Annemarie Bhardwaj PA-C (Suzy) Date of Service: 08/10/19 Diagnosis: Chronic cholecystitis, hepatomegaly Procedure: Operation: Laparscopic cholecystectomy, liver biopsy I was present for the entirety of the operative procedure. For further detail, please refer to operative report. Visit type - Case Type Case Type: Scheduled - Emergency Emergency Visit: No - New patient This patient is new to me today: Yes Date on this admission: 08/10/19 - Critical Care Critical Care patient: No
--- NOTE | 2019-08-10 11:22 | OP ---
DATE OF OPERATION: 08/10/2019 PROCEDURE: Laparoscopic cholecystectomy, liver biopsy. PREOPERATIVE DIAGNOSIS: Chronic acalculous cholecystitis, hepatomegaly. POSTOPERATIVE DIAGNOSIS: Chronic acalculous cholecystitis, fatty liver, and adhesions. SURGEON: Twan Rivas MD LIFELINE REPRESENTATIVES: SHIN Perez ANESTHESIA: General endotracheal. FINDINGS AND PROCEDURE: This is a 49-year-old female who presents with chronic right upper quadrant pain aggravated by fatty meals. Extensive preoperative workup consisting of EGD, colonoscopy, ultrasound, HIDA scan, MRCP showed no gallbladder calculus and normal HIDA scan with normal ejection fraction, other than hepatomegaly. Due to the persistence of the symptoms, patient was advised removal of the gallbladder and liver biopsy. Consent was obtained after discussing the risks, benefits, and alternatives of the procedure. Patient was then brought to the operating room and placed in supine position. General endotracheal anesthesia was administered. The abdomen was prepped and draped in the usual sterile fashion. Using 0.5% Marcaine, local anesthesia was administered to the proposed incision site. The peritoneal cavity was entered using the Optiview technique. A 5-mm umbilical incision using a 5-mm 30-degree scope inserted in a 5-mm optical port. The pneumoperitoneum was established. Peritoneal cavity was carefully inspected and was noted to be free of inadvertent injury. Patient was then placed in reverse Trendelenburg left side down position. A 12-mm port was inserted at the subxiphoid region, and two 5-mm ports were inserted at the right subcostal region at the midclavicular and anterior axillary lines. A liver biopsy was initially done by making a puncture wound at the right subcostal region and using the Joel-Cut needle inserted into the segment 5 of the liver. Additional biopsy was done by taking a 1-cm wedge of liver tissue at the edge of the segment 5 of the liver. Hemostasis was achieved using the Bovie cautery. Attention was then focused at the gallbladder by grasping the fundus and retracting the structure anterior superiorly. Adhesions of the omentum to the gallbladder were taken down sharply using the hook dissector connected to monopolar cautery until the infundibulum was visualized. The infundibulum was grasped and retracted anterolaterally to expose the hepatocystic triangle. The visceral peritoneum covering the triangle was scored using the hook dissector to expose the cystic duct and cystic artery. Both structures were carefully isolated using the [place] dissector combined with peanut dissector. The cystic artery was initially clipped at 3 points followed by transection leaving 2 clips at the cystic artery stump. The cystic duct was also isolated and dissected at 3 points followed by transection leaving 2 clips at the cystic stump. Gallbladder was then resected from its bed in antegrade fashion using the hook dissector connected to monopolar cautery. The gallbladder was placed in Endobag and extracted via subxiphoid port. Small amount of blood in Morison's pouch and the bleeding from the biopsy procedure was suctioned. Irrigation of the gallbladder bed as well as the Morison's pouch and the right hepatic gutter was done until the return was clear. The biopsy site was again carefully inspected, and it was noted to be free of active bleeding. Pneumoperitoneum was evacuated, and the ports were removed. The wounds were closed with subcuticular Biosyn 4-0 sutures reinforced with Dermabond. Patient was successfully extubated and transferred to the post anesthesia care unit in satisfactory condition. Estimated blood loss was about 15 mL. Wound class clean, contaminated. The patient received a gram of Ancef prior to the start of the procedure. Aguilar [id number]
[2019-08-10] MEDS ORDERED: ACETAMINOPHEN 1000 MG/100 ML VIAL (NON FORMULARY) IVPB ONE ×2 (15:11→15:15)
[2019-08-10] MEDS: oxyCODONE HCL 5 MG TABLET PO PRN ×2 (17:00→22:58)
[2019-08-10] MEDS ORDERED: oxyCODONE HCL 5 MG TABLET ONE (17:01)
[2019-08-10] MEDS ORDERED: ALBUTEROL SO4 0.083% IH SOL 2.5 MG/3 ML VIAL.NEB. NEB PRN (19:21)
[2019-08-10] MEDS: LACTATED RINGERS SOLUTION 1,000 ML IV SCH (20:04)
--- NOTE | 2019-08-10 21:57 | CONSULT ---
Consultation: REQUESTING PROVIDER: Dr Rivas CONSULT REQUEST: We have been asked to medically evaluate this patient for (SOB) . HISTORY OF PRESENT ILLNESS: This is a 49 y/o woman with a PMHx of Asthma, Migranes, Fibromyalgia, Chronic Neck and Back Pain. s/p Laproscopic Cholecystectomy with Liver Biopsy POD #0. Patient reports having SOB right after surgery that worsens with cough. Patient also reports having throat and surgical site pain to RUQ. Patient reported having bilateral lower extremity numbness now resolved. Patient denies CP or palpitations. She reports that her breathing has improved with oxygen, currently on 3LNC. Past Medical History: see HPI REVIEW OF SYSTEMS: CONSTITUTIONAL: Absent: fever, chills, diaphoresis, generalized weakness, malaise, loss of appetite, weight change HEENT: Absent: rhinorrhea, nasal congestion, throat pain, throat swelling, difficulty swallowing, mouth swelling, ear pain, eye pain, visual changes CARDIOVASCULAR: Absent: chest pain, syncope, palpitations, irregular heart rate, lightheadedness , peripheral edema RESPIRATORY: cough, shortness of breath Absent: dyspnea with exertion, orthopnea, wheezing, stridor, hemoptysis GASTROINTESTINAL: abdominal pain Absent: abdominal distension, nausea, vomiting, diarrhea, constipation, melena, hematochezia GENITOURINARY: Absent: dysuria, frequency, urgency, hesitancy, hematuria, flank pain, genital pain MUSCULOSKELETAL: Absent: myalgia, arthralgia, joint swelling, back pain, neck pain SKIN: Absent: rash, itching, pallor HEMATOLOGIC/IMMUNOLOGIC: Absent: easy bleeding, easy bruising, lymphadenopathy, frequent infections ENDOCRINE: Absent: unexplained weight gain, unexplained weight loss, heat intolerance, cold intolerance NEUROLOGIC: headache, paresthesias Absent: focal weakness or dizziness, unsteady gait, seizure, mental status changes, bladder or bowel incontinence PSYCHIATRIC: Absent: anxiety, depression, suicidal or homicidal ideation, hallucinations. PHYSICAL EXAMINATION Vital Signs - 24 hr 08/10/19 08/10/19 08/10/19 07:28 07:30 09:48 Temperature 98.8 F 97.7 F Pulse Rate 92 H 86 Respiratory 18 18 Rate Blood Pressure 143/91 138/58 L O2 Sat by Pulse 100 99 Oximetry (%) 08/10/19 08/10/19 08/10/19 10:00 10:15 10:30 Temperature Pulse Rate 76 60 62 Respiratory 18 18 17 Rate Blood Pressure 125/56 L 122/83 108/38 L O2 Sat by Pulse 100 100 100 Oximetry (%) 08/10/19 08/10/19 08/10/19 10:45 11:00 11:15 Temperature Pulse Rate 70 64 68 Respiratory 18 12 12 Rate Blood Pressure 114/54 L 113/57 L 121/52 L O2 Sat by Pulse 100 100 100 Oximetry (%) 08/10/19 08/10/19 08/10/19 11:30 11:45 12:00 Temperature Pulse Rate 80 75 95 H Respiratory 17 17 22 H Rate Blood Pressure 120/65 118/65 132/75 O2 Sat by Pulse 99 99 99 Oximetry (%) 08/10/19 08/10/19 08/10/19 12:15 12:25 12:30 Temperature Pulse Rate 72 66 68 Respiratory 12 18 17 Rate Blood Pressure 109/67 132/50 L 120/50 L O2 Sat by Pulse 100 100 100 Oximetry (%) 08/10/19 08/10/19 08/10/19 12:45 13:00 13:15 Temperature 98.4 F Pulse Rate 68 69 75 Respiratory 17 18 18 Rate Blood Pressure 111/65 111/55 L 114/58 L O2 Sat by Pulse 100 100 99 Oximetry (%) 08/10/19 08/10/19 08/10/19 13:35 17:04 17:33 Temperature 98.1 F 99.0 F 98.6 F Pulse Rate 76 90 82 Respiratory 18 20 20 Rate Blood Pressure 118/65 117/71 121/76 O2 Sat by Pulse 95 96 Oximetry (%) GENERAL: Awake, alert, and fully oriented, in no acute distress. HEAD: Normal with no signs of trauma. EYES: Pupils equal, round and reactive to light, extraocular movements intact, sclera anicteric, conjunctiva clear. No lid lag. EARS, NOSE, THROAT: Ears normal, nares patent, oropharynx clear without exudates. Dry mucous membranes. NECK: Normal range of motion, supple without lymphadenopathy, JVD, or masses. LUNGS: Breath sounds equal, clear to auscultation bilaterally. No wheezes, and no crackles. No accessory muscle use. HEART: Regular rate and rhythm, normal S1 and S2 without murmur, rub or gallop. ABDOMEN: Soft, nontender, not distended, no guarding, no rebound, no masses. No hepatomegaly or splenomegaly. hypoactive bowel sounds, surgical wounds intact MUSCULOSKELETAL: Normal range of motion at all joints. No bony deformities or tenderness. No CVA tenderness. UPPER EXTREMITIES: 2+ pulses, warm, well-perfused. No cyanosis. No clubbing. Cap refill <2 seconds. No peripheral edema. LOWER EXTREMITIES: 2+ pulses, warm, well-perfused. No calf tenderness. No peripheral edema. NEUROLOGICAL: Cranial nerves II-XII intact. Normal speech. Gait not observed. PSYCHIATRIC: Cooperative. Good eye contact. Appropriate mood and affect. SKIN: Warm, dry, normal turgor, no rashes or lesions noted. Laboratory Results - last 24 hr 08/10/19 07:00 Urine HCG, Qual Negative Active Medications Generic Name Dose Route Start Last Admin Trade Name Freq PRN Reason Stop Dose Admin Albuterol Sulfate 1 amp 08/10/19 19:21 Ventolin 0.083% Nebulizer Soln - NEB Q4H PRN SHORT OF BREATH/WHEEZING Fentanyl 50 mcg 08/10/19 09:52 Sublimaze Injection - IVPUSH [id number] PRN PAIN-PACU ORDER X 4 DOSES ONLY Lactated Ringer's 1,000 mls @ 125 mls/hr 08/10/19 10:00 08/10/19 20:04 Lactated Ringers Solution IV Not Given ASDIR DENAE Ondansetron HCl 4 mg 08/10/19 09:52 Zofran Injection IVPUSH Q6H PRN NAUSEA AND/OR VOMITING Oxycodone HCl 5 mg 08/10/19 09:52 08/10/19 17:00 Roxicodone - PO 5 mg Q4H PRN Administration PAIN LEVEL 1-5 ASSESSMENT/PLAN: This is a 49 y/o woman with a PMHx of Asthma, Migraines, Fibromyalgia, Chronic Neck and Back Pain. s/p Laproscopic Cholescystectomy with Liver Biopsy POD #0 Plan: Continue with surgical regimen Albuterol MDI prn Albuterol nebulizer prn Incentive Spirometer O2 DVT ppx per surgical team Dispo: We will continue to follow the patient. Thank you for this consultative opportunity. Problem List - Problems (1) SOB (shortness of breath) Assessment/Plan: Likely secondary to Asthma Flare s/p Lap Cholescystectomy w/Liver Biopsy Chest Xray image reviewed- no infiltrate or effusions, awaiting official report O2 Albuterol Neb prn Peak Flow Monitor vitals Code(s): R06.02 - SHORTNESS OF BREATH (2) Asthma exacerbation Assessment/Plan: Chest Xray image reviewed- no infiltrate or effusions, awaiting official report O2 Albuterol Neb prn Peak Flow Monitor vitals Code(s): J45.901 - UNSPECIFIED ASTHMA WITH (ACUTE) EXACERBATION (3) Status post laparoscopic cholecystectomy Assessment/Plan: Continue current regimen, per surgeon Incentive Spirometer Code(s): Z90.49 - ACQUIRED ABSENCE OF OTHER SPECIFIED PARTS OF DIGESTIVE TRACT (4) Migraine Assessment/Plan: Continue Cymbalta Code(s): G43.909 - MIGRAINE, UNSP, NOT INTRACTABLE, WITHOUT STATUS MIGRAINOSUS (5) Neck pain Assessment/Plan: Continue Oxycodone Code(s): M54.2 - CERVICALGIA Visit type - Emergency Visit Emergency Visit: No - New Patient This patient is new to me today: Yes Date on this admission: 08/10/19 - Critical Care Critical Care patient: No
[2019-08-11] MEDS: LACTATED RINGERS SOLUTION 1,000 ML IV SCH ×2 (04:16→12:43)
[2019-08-11] MEDS: oxyCODONE HCL 5 MG TABLET PO PRN (06:01)
[2019-08-11] MEDS ORDERED: PNEUMOC 13-VAL CONJ-DIP CRM/PF 0.5 ML DISP.SYRIN IM ONE (10:00)
[2019-08-11] MEDS ORDERED: PNEUMOCOCCAL 23 VACCINE 0.5 ML VIAL IM ONE (11:00)
[2019-08-11] MEDS ORDERED: BENZOCAINE/MENTH/CETYLPYRD CL 1 EACH LOZENGE MM PRN (12:29)
[2019-08-11 14:49] VITALS: BP 104/61; PULSE 66; TEMP 97.6
--- NOTE | 2019-08-13 17:52 | PATH ---
Surgical Pathology Report Patient Name: SHERNIE MOE [facility]. Rec. #: [id number] /Age/Gender: 1970 (Age: 49) / F Account: [id number] Location: AMBULATORY SURG Taken: 08/10/2019 Received: 08/10/2019 Reported: 08/13/2019 Physicians: Twan Rivas M.D. Specimen(s) Received A: GALLBLADDER B: LIVER BIOPSY Clinical History Chronic cholecystitis Final Diagnosis A. GALLBLADDER, LAPAROSCOPIC CHOLECYSTECTOMY: CHRONIC CHOLECYSTITIS. ONE BENIGN PERIDUCTAL LYMPH NODE (0/1). B. LIVER, BIOPSY: LIVER PARENCHYMA WITH PATCHY MILD STEATOSIS (~20%). NO INCREASE IN IRON AND FIBROSIS ON PERFORMED SPECIAL STAINS (IRON AND TRICHROME). Electronically Signed Kelly Mo M.D. Gross Description A. Received in formalin, labeled "gallbladder," is a 7.0 x 3.1 x 3.0 cm. gallbladder with a 0.2 cm. in length portion of cystic duct attached. There is a 0.5 cm in greatest dimension rogel brown periductal lymph node present. The outer surface is rogel green and varies from smooth to shaggy. The lumen contains green, tenacious bile. No choleliths are identified. The mucosa is brown and velvety. The wall of the gallbladder is focally edematous and averages 0.1 cm. in thickness. Machine Grinder sections are submitted in one cassette. B. Received in formalin labeled "liver biopsy," is a 2.0 cm in length x 0.1 cm in diameter rogel, cylindrical portion of soft tissue. Also received within the same container is a 1.3 x 1.0 x 0.2 cm aggregate of rogel-brown soft tissue fragments. The specimen is entirely submitted in one cassette. DL/08/10/2019 saudi08/10/2019
== END 2019-08-11 15:50 | disposition home or self-care (01) ==
LOC: JASU-SURG 06:53 → JASUSAT 06:53 → J8W 17:20 → JASUSAT 08-11 15:50
PROVIDERS: ATTEND Surgery
PROC: 0FB04ZX Excision of Liver, Percutaneous Endoscopic Approach, Diagnostic (ICD-10-PCS; 2019-08-10)
PROC: 0FT44ZZ Resection of Gallbladder, Percutaneous Endoscopic Approach (ICD-10-PCS; principal; 2019-08-10 08:30)
DX: K81.1 Chronic cholecystitis (principal); R16.0 Hepatomegaly, not elsewhere classified; E66.9 Obesity, unspecified; R73.03 Prediabetes
CPT/HCPCS: 71045-TC-FY; 84703; 88304-TC; 88305-TC; 88313-TC; 90732; 94760; G0009; J0131

== ENCOUNTER 2023-06-03 21:27 | Emergency (ER) | payer SELFPAY ==
[2023-06-03 21:34] VITALS: TEMP 99.1; BMI 31.5
[2023-06-03] MEDS ORDERED: KETOROLAC TROMETHAMINE 15 MG/ML VIAL IVPUSH ONE (22:31)
[2023-06-03] MEDS ORDERED: DALBAVANCIN HCL 1,500 MG in DEXTROSE 5%-WATER - 500 ML IVPB ONE (22:31)
[2023-06-03] MEDS ORDERED: DALBAVANCIN HCL 500 MG VIAL (RESTRICTED TO ID ONLY) IVPB ONE (23:50)
[2023-06-03] MEDS ORDERED: KETOROLAC TROMETHAMINE 15 MG/ML VIAL ONE (23:54)
[2023-06-04 00:42] LABS: INR 1.03 (0.83-1.09)
[2023-06-04 00:44] LABS: POTASSIUM 5.6 mmol/L (3.5-5.1)
[2023-06-04 00:48] LABS: ALBUMIN 3.6 g/dl (3.4-5.0); BLOOD UREA NITROGEN 14.3 mg/dL (7-18)
[2023-06-04 00:51] LABS: CREATININE 0.8 mg/dL (0.55-1.3)
[2023-06-04 00:52] LABS: BILIRUBIN,TOTAL 0.3 mg/dL (0.2-1)
[2023-06-04 00:53] LABS: TOT PROT 8.2 g/dl (6.4-8.2)
[2023-06-04 02:06] LABS: BASO % 0.5 % (0-2.0); EOS % 2.9 % (0-4.5); HEMOGLOBIN 13.7 GM/dL (10.7-15.3); LYMPH % 35.6 % (8-40); MCH 29.4 pg (25.7-33.7); MCHC 34.2 g/dl (32.0-36.0); MEAN CELL VOLUME 85.9 fl (80-96); MEAN PLT VOLUME 9.8 fl (7.5-11.1); PLATELET COUNT 154 10^3/uL (134-434); RBC 4.66 M/mm3 (3.60-5.2); RDW 13.8 % (11.6-15.6); WHITE BLOOD COUNT 7.9 K/mm3 (4.0-10.0)
[2023-06-04 02:52] VITALS: BP 113/73; PULSE 76; RESP 18
== END 2023-06-04 03:05 | disposition home or self-care (01) ==
LOC: JER 21:27
PROC: 3E03329 Introduction of Other Anti-infective into Peripheral Vein, Percutaneous Approach (ICD-10-PCS; principal; 2023-06-03)
PROC: 3E0333Z Introduction of Anti-inflammatory into Peripheral Vein, Percutaneous Approach (ICD-10-PCS; 2023-06-03)
DX: S50.861A Insect bite (nonvenomous) of right forearm, initial encounter (principal); L53.9 Erythematous condition, unspecified; R22.31 Localized swelling, mass and lump, right upper limb; M79.631 Pain in right forearm; L30.9 Dermatitis, unspecified; W57.XXXA Bitten or stung by nonvenomous insect and other nonvenomous arthropods, initial encounter
CPT/HCPCS: 36415; 80053; 84132; 85025; 85610; 85730; 93971; 99284-25; J0875